=== PATIENT | female | born 1960 | race Caucasian/White ===

== ENCOUNTER 2018-06-01 13:53 | Day surgery (SDC) | payer BC ==
[~2018-06-01] VITALS: Ht 172.7 cm; Wt 68.4 kg
[2018-06-01 14:50] VITALS: BP 119/66; PULSE 70; TEMP 98
[2018-06-01] MEDS ORDERED: SYNTHROID0.075 MG/T PO (14:58)
[2018-06-01] MEDS ORDERED: COREG 3.123.125 MG/T PO (14:59)
[2018-06-01] MEDS ORDERED: ENTOCORT EC3 MG PO (15:11)
[2018-06-01] MEDS ORDERED: VESICARE 5MG5 MG PO (15:11)
[2018-06-01] MEDS ORDERED: IMITREX100 MG PO (15:12)
[2018-06-01] MEDS ORDERED: ALLEGRA 180MG180 MG PO (15:14)
[2018-06-01] MEDS ORDERED: PHENERGAN 25 TA25 MG PO (15:14)
[2018-06-01] MEDS ORDERED: TYLENOL 500MG500 MG PO (15:15)
[2018-06-01] MEDS ORDERED: FLORAJEN A20 Billion PO (15:15)
[2018-06-01] MEDS ORDERED: MUCINEX 60600 MG/TA1 PO (15:17)
[2018-06-01] MEDS ORDERED: BENADRYL25 M2 PO (15:18)
[2018-06-01] MEDS ORDERED: ASPIRIN 32325 MG/TAB PO (15:18)
[2018-06-01] MEDS ORDERED: FLONASEALLERGY NS (15:19)
[2018-06-01] MEDS ORDERED: ASPIRIN E.C. 8181 MG PO (15:20)
[2018-06-01 15:55] VITALS: BP 103/51; PULSE 81; TEMP 98.5
[2018-06-01 16:10] VITALS: BP 112/58; PULSE 78
[2018-06-01 16:25] VITALS: BP 105/59; PULSE 68
[2018-06-01 17:31] VITALS: BP 112/35; PULSE 82
== END 2018-06-01 16:47 | disposition home or self-care (01) ==
LOC: SDCO 13:53
DX: K29.80 Duodenitis without bleeding (principal); R10.13 Epigastric pain; R07.9 Chest pain, unspecified; K52.831 Collagenous colitis; E11.9 Type 2 diabetes mellitus without complications; Z79.4 Long term (current) use of insulin; Z79.82 Long term (current) use of aspirin; Z79.899 Other long term (current) drug therapy
CPT/HCPCS: J2250; J3010; J7030; J7042

== ENCOUNTER 2018-10-08 13:09 | Day surgery (SDC) | payer BC ==
[2018-10-08] VITALS (8 sets, daily range): BP systolic 99–127; BP diastolic 62–87; PULSE 69–90; TEMP 97.8–98.2
[~2018-10-08] VITALS: Ht 172.7 cm; Wt 67.8 kg
[~2018-10-08 13:09] MED LIST: ALLEGRA 180MG180 MG PO; ASPIRIN 32325 MG/TAB PO; ASPIRIN E.C. 8181 MG PO; BENADRYL25 M2 PO; COREG 3.123.125 MG/T PO; ENTOCORT EC3 MG PO; FLONASEALLERGY NS; FLORAJEN A20 Billion PO; IMITREX100 MG PO; MUCINEX 60600 MG/TA1 PO; PHENERGAN 25 TA25 MG PO; SYNTHROID0.075 MG/T PO; TYLENOL 500MG500 MG PO; VESICARE 5MG5 MG PO
[2018-10-08] MEDS ORDERED: PRIL40 PO (13:24)
--- NOTE | 2018-10-08 15:00 | NUR ---
Pt returns from endo procedure. Pt ambulates from cart to recliner with RN assist. Monitors on and alarms set. Call light within reach. present in room. Report received from [place] Connor. Pt drowsy and desires to check blood sugar levels. Levels read 213. Pt has insulin pump, and insulin bolus instilled via pump. Pt has no other complaints at this time.
--- NOTE | 2018-10-08 15:10 | NUR ---
Pt feeling nauseated at this time. Has about 5 mL of clear vomitus. Pt given cool washcloth.
--- NOTE | 2018-10-08 15:15 | NUR ---
Pt remains drowsy, but able to answer all questions appropriately.
--- NOTE | 2018-10-08 15:30 | NUR ---
Pt still feels "blah," but a little better than before.
--- NOTE | 2018-10-08 15:30 | NUR ---
Pt remains drowsy, but able to answer all questions appropriately.
--- NOTE | 2018-10-08 15:45 | NUR ---
Pt requests water.
--- NOTE | 2018-10-08 16:00 | NUR ---
Pt remains drowsy, but feeling a little better still. Taking drink well.
--- NOTE | 2018-10-08 16:15 | NUR ---
Pt drowsy, but taking nimesh crackers well. Pt answers all questions appropriately.
--- NOTE | 2018-10-08 16:20 | NUR ---
Pt desires to go home and rest to recuperate.
--- NOTE | 2018-10-08 16:35 | NUR ---
Discharge instructions given to patient and . All questions answered to their satisfaction. Handed to them are a thank you card, discharge instructions, and diagnosis information.
--- NOTE | 2018-10-08 16:55 | NUR ---
Pt transferred out of hospital via wheelchair and [place], assist, to private vehicle driven by .
== END 2018-10-08 16:55 | disposition home or self-care (01) ==
LOC: SDCO 13:09
DX: K52.89 Other specified noninfective gastroenteritis and colitis (principal); E11.9 Type 2 diabetes mellitus without complications; E86.0 Dehydration; A04.72 Enterocolitis due to Clostridium difficile, not specified as recurrent; Z79.4 Long term (current) use of insulin
CPT/HCPCS: J2250; J2310; J2405; J3010; J7030

== ENCOUNTER 2020-02-11 06:07 | Day surgery (SDC) | payer BC ==
[~2020-02-11] VITALS: Ht 170.2 cm; Wt 72.7 kg
[~2020-02-11 06:07] MED LIST changes: +PRIL40 PO
[2020-02-11] MEDS ORDERED: NOVOLOG 100U100 U/M1 (06:29)
[2020-02-11] MEDS ORDERED: SYNTHROID0.075 MG/T PO (06:30)
[2020-02-11] MEDS ORDERED: ENTOCORT EC3 MG PO (06:30)
[2020-02-11] MEDS ORDERED: VESICARE 5MG5 MG PO (06:31)
[2020-02-11] MEDS ORDERED: COREG 3.123.125 MG/T (06:31)
[2020-02-11] MEDS ORDERED: PRIL40 PO (06:32)
[2020-02-11] MEDS ORDERED: AMITRIPTYLINE H25 M1 PO (06:33)
[2020-02-11] MEDS ORDERED: IMITREX100 MG PO (06:33)
[2020-02-11] MEDS ORDERED: PHENERGAN 25 TA25 MG PO (06:34)
[2020-02-11 06:43] VITALS: BP 122/76; PULSE 85; TEMP 97
[2020-02-11] MEDS ORDERED: MUCINEX 60600 MG/TA1 PO (07:00)
[2020-02-11] MEDS ORDERED: ALLEGRA 180MG180 MG PO (07:02)
[2020-02-11] MEDS ORDERED: BENADRYL25 M2 PO (07:03)
[2020-02-11] MEDS ORDERED: TYLENOL 500MG500 MG PO (07:03)
[2020-02-11] MEDS ORDERED: ANTI-GAS ULTRA180 MG PO (07:04)
[2020-02-11] MEDS ORDERED: ASPIRIN 32325 MG/TAB PO (07:04)
[2020-02-11] MEDS ORDERED: IMODIUM 2MG CAPS2 MG PO (07:05)
[2020-02-11 07:45] VITALS: BP 119/78; PULSE 85; TEMP 98
--- NOTE | 2020-02-11 07:45 | NUR ---
Patient back to [facility] [place] [facility] at this time via cart. Patient transfers from cart to chair with stand by assist and without any complications. Patient monitor applied, vitals stable. Patient given coffee and muffin.
[2020-02-11 08:00] VITALS: BP 118/69; PULSE 80
--- NOTE | 2020-02-11 08:10 | NUR ---
Dr Bills into see patient at this time.
--- NOTE | 2020-02-11 08:15 | NUR ---
Patient tolerates coffee and muffin without any nausea. Vitals stable. Patient jeremie pain, reports she is ready to go home whenever she can.
--- NOTE | 2020-02-11 08:20 | NUR ---
Dismissal instructions gone over with patient. Patient voices understanding and all questions answered.
--- NOTE | 2020-02-11 08:30 | NUR ---
Patient dischagred to home/private vehicle at patient enterance via wheelchair without any complications. Patient and family leave thanking staff for services.
== END 2020-02-11 08:30 | disposition home or self-care (01) ==
LOC: SDCO 06:07
DX: D12.2 Benign neoplasm of ascending colon (principal); K52.89 Other specified noninfective gastroenteritis and colitis; K21.9 Gastro-esophageal reflux disease without esophagitis; E11.9 Type 2 diabetes mellitus without complications; E03.9 Hypothyroidism, unspecified; I49.3 Ventricular premature depolarization; G43.909 Migraine, unspecified, not intractable, without status migrainosus; Z79.899 Other long term (current) drug therapy; Z79.82 Long term (current) use of aspirin; Z87.891 Personal history of nicotine dependence; Z94.89 Other transplanted organ and tissue status; Z88.1 Allergy status to other antibiotic agents; Z96.41 Presence of insulin pump (external) (internal); Z86.19 Personal history of other infectious and parasitic diseases
CPT/HCPCS: J2405; J2704; J3010; J7030